=== PATIENT | female | born 1980 | race Caucasian/White ===

== ENCOUNTER 2023-03-13 08:01 | Outpatient (CLI) | payer OTHER | END 2023-03-13 08:06 | disposition home or self-care (01) | LOC: LAB 08:01 | PROVIDERS: ATTEND Obstetrics & Gynecology Obstetrics | DX: D64.9 Anemia, unspecified (principal); E78.2 Mixed hyperlipidemia; E16.2 Hypoglycemia, unspecified; E03.9 Hypothyroidism, unspecified; N39.0 Urinary tract infection, site not specified; E55.9 Vitamin D deficiency, unspecified; N91.1 Secondary amenorrhea; R10.2 Pelvic and perineal pain; R97.1 Elevated cancer antigen 125 [CA 125]; A60.09 Herpesviral infection of other urogenital tract; A64 Unspecified sexually transmitted disease; R10.13 Epigastric pain ==